=== PATIENT | female | born 1985 ===

== ENCOUNTER 2020-05-31 07:15 | Inpatient (IN) | payer OTHER ==
[2020-05-31 10:04] VITALS: BMI 34.2
[2020-05-31] MEDS ORDERED: DINOPROSTONE 10 MG VAGINAL SUPPOSITORY VG ONE (10:12)
[2020-05-31] MEDS: ELECTROLYTE-148 SOLN 1,000 ML IV SCH ×2 (10:35→17:35)
[2020-05-31 11:20] LABS: BASO % 1.1 % (0-2.0); EOS % 6.6 % (0-4.5); HEMOGLOBIN 10.9 GM/dL (10.7-15.3); LYMPH % 18.4 % (8-40); MCH 27.2 pg (25.7-33.7); MCHC 33.1 g/dl (32.0-36.0); MEAN CELL VOLUME 82.2 fl (80-96); MEAN PLT VOLUME 9.7 fl (7.5-11.1); MONO % 6.4 % (3.8-10.2); NEUT % 67.5 % (42.8-82.8); PLATELET COUNT 188 K/MM3 (134-434); RBC 4.02 M/mm3 (3.60-5.2); RDW 14.3 % (11.6-15.6); WHITE BLOOD COUNT 9.6 K/mm3 (4.0-10.0)
[2020-05-31 11:51] LABS: BLOOD UREA NITROGEN 10.4 mg/dL (7-18); CALCIUM 8.6 mg/dL (8.5-10.1); CREATININE 0.4 mg/dL (0.55-1.3)
[2020-05-31 11:57] LABS: INR 0.93 (0.83-1.09)
[2020-05-31 12:00] LABS: ACTIVATED PTT 32.4 SECONDS (25.2-36.5)
--- NOTE | 2020-05-31 14:00 | HP ---
Past Medical History - Primary Care Physician PCP:: Stephanie Saenz - Admission Chief Complaint: Induction of labor for grade 3 placenta History of Present Illness: 34 yo LMP 09/25/2019 EDC 06/04/2020 EGA 39.3 weeks scheduled for Induct ion of labor due to aging placenta H/O LGA x 3 G 5 present : suspected Hydrocephaly, venticulomegaly - ruled out by Neurosonography done by Dr Bassett History Source: Patient Limitations to Obtaining History: No Limitations, Language Barrier - Past Medical History ...: 5 ...Para: 3 ...Term: 3 ...: 0 ...Spon : 1 ...Induced : 0 ...Living Children: 3 ...Multiple Gestation: 0 ...LMP: 09/25/19 ... Weeks Gestation by Dates: 39.4 ...EDC by Dates: 07/01/20 ...EDC by Sono: 06/04/20 - Past Surgical History Past Surgical History: Yes: None Hx Myomectomy: No Hx Transabdominal Cerclage: No - Smoking History Smoking history: Never smoked Have you smoked in the past 12 months: No - Alcohol/Substance Use Hx Alcohol Use: No History of Substance Use: reports: None - Social History Usual Living Arrangement: Yes: With Spouse ADL: Independent History of Recent Travel: No Home Medications - Allergies Allergies/Adverse Reactions: Allergies Allergy/AdvReac Type Severity Reaction Status Date / Time No Known Allergies Allergy Verified 05/31/20 09:26 - Home Medications Home Medications: Ambulatory Orders Pnv No.95/Ferrous Fum/Folic AC [ Vitamin Tablet] 1 each PO DAILY 05/31/20 Family Medical History Family History: Unremarkable Review of Systems - Review of Systems Constitutional: reports: No Symptoms Eyes: reports: No Symptoms HENT: reports: No Symptoms Neck: reports: No Symptoms Cardiovascular: reports: No Symptoms Respiratory: reports: No Symptoms Gastrointestinal: reports: No Symptoms Genitourinary: reports: No Symptoms, Pain Breasts: reports: No Symptoms Reported Musculoskeletal: reports: No Symptoms Integumentary: reports: No Symptoms Neurological: reports: No Symptoms Endocrine: reports: No Symptoms Hematology/Lymphatic: reports: No Symptoms Psychiatric: reports: No Symptoms Physical Exam - Maternity Vital Signs: Vital Signs Temperature 98.3 F 05/31/20 12:00 Pulse Rate 78 05/31/20 12:00 Respiratory Rate 20 05/31/20 12:00 Blood Pressure 114/68 05/31/20 12:00 O2 Sat by Pulse Oximetry (%) Constitutional: Yes: Well Nourished, No Distress Eyes: Yes: WNL HENT: Yes: WNL Neck: Yes: WNL Cardiovascular: Yes: WNL Lungs: Clear to auscultation - Abdominal Exam/OB Fundal Height: 40 Number of Fetuses: Single Presentation: Vertex Contractions: Yes Regularity: Irritability Intensity: Unaware Monitor Mode: External Heart Rate (range): 140 Heart Rate Location: [facility] Category: I Accelerations: Uniform Decelerations: None - Vaginal Exam/OB Vaginal Bleeding: No Dilatation (cm): 1 Effacement (%): 30 Amniotic Fluid: No: Clear Presentation: Vertex/Position Station: -2 - Physical Exam Musculoskeletal: Yes: WNL Extremities: Yes: WNL Edema: No Integumentary: Yes: WNL ...Motor Strength: WNL Psychiatric: Yes: WNL - Labs Lab Results: CBC, BMP 05/31/20 11:00 05/31/20 11:00 Hemorrhage Risk Assessment - Risk Factors Medium Risk Factors: Yes: Multiple gestation Risk Score: 1 Risk Level: Medium Risk Problem List - Problems (1) 39 weeks gestation of Code(s): Z3A.39 - 39 WEEKS GESTATION OF (2) Multiparity Code(s): Z64.1 - PROBLEMS RELATED TO MULTIPARITY (3) Placenta disorder Code(s): O43.90 - UNSPECIFIED PLACENTAL DISORDER, UNSPECIFIED TRIMESTER Assessment/Plan Admit to LD Induction of labor
--- NOTE | 2020-05-31 18:32 | PN ---
Progress Note (short form) - Note Progress Note: Pt c/o painful UC VSS, afebrile VE - 3-4 cm, cervidil removed AROM - clear fluid IFM apply 5:00pm Baseline 140 bpm reactive cat 1 no decel TOCO reg UC q 2 min A/P close observation Problem List - Problems (1) 39 weeks gestation of Code(s): Z3A.39 - 39 WEEKS GESTATION OF (2) Multiparity Code(s): Z64.1 - PROBLEMS RELATED TO MULTIPARITY (3) Placenta disorder Code(s): O43.90 - UNSPECIFIED PLACENTAL DISORDER, UNSPECIFIED TRIMESTER
[2020-05-31] MEDS ORDERED: OXYTOCIN 20 UNITS in 0.9% NS 20 UNIT/1,000 ML INFUS.BAG IV ONE (19:38)
[2020-05-31] MEDS ORDERED: LIDOCAINE HCL 1% PRESERVATIVE FREE - 30ML VIAL ONE (19:38)
[2020-05-31] MEDS ORDERED: OXYTOCIN 30 UNITS in 0.9% NS 30 UNIT/500 ML INFUS.BAG IVPB ONE (19:38)
[2020-05-31] MEDS: OXYTOCIN 30 UNITS in 0.9% NS 30 UNIT/500 ML INFUS.BAG IVPB SCH (19:43)
[2020-05-31] MEDS ORDERED: BUTORPHANOL TARTRATE 2 MG/ML VIAL ONE (20:33)
[2020-05-31] MEDS ORDERED: PROMETHAZINE HCL 25 MG/1 ML VIAL ONE (20:34)
[2020-05-31] MEDS ORDERED: BUTORPHANOL TARTRATE 1 MG/ML VIAL IVPB ONE (20:38)
--- NOTE | 2020-05-31 20:38 | PN ---
Progress Note (short form) - Note Progress Note: Pt c/o painful UC and requesting pain meds VSS, afebrile VE - 3-4 cm, vtx -2 , leaking clear fluid Baseline 140 bpm reactive cat 1 no decel TOCO reg UC q 4-5 min A/P close observation Pitocin augmentation Pain meds, declined epidural Rodrigues to gravity Problem List - Problems (1) 39 weeks gestation of Code(s): Z3A.39 - 39 WEEKS GESTATION OF (2) Multiparity Code(s): Z64.1 - PROBLEMS RELATED TO MULTIPARITY (3) Placenta disorder Code(s): O43.90 - UNSPECIFIED PLACENTAL DISORDER, UNSPECIFIED TRIMESTER
[2020-05-31] MEDS ORDERED: PROMETHAZINE HCL 25 MG/1 ML VIAL IVPB ONE (20:39)
--- NOTE | 2020-05-31 22:10 | PN ---
Progress Note (short form) - Note Progress Note: Pt c/o painful UC VSS, afebrile VE -5 cm, vtx -2 , leaking clear fluid Baseline 140 bpm reactive cat 1 no decel TOCO reg UC q 4-5 min A/P close observation Pitocin augmentation Pain meds, declined epidural Rodrigues to gravity Problem List - Problems (1) 39 weeks gestation of Code(s): Z3A.39 - 39 WEEKS GESTATION OF (2) Multiparity Code(s): Z64.1 - PROBLEMS RELATED TO MULTIPARITY (3) Placenta disorder Code(s): O43.90 - UNSPECIFIED PLACENTAL DISORDER, UNSPECIFIED TRIMESTER
[2020-05-31] MEDS ORDERED: METHYLERGONOVINE MALEATE 0.2 MG/1 ML AMP IM PRN (23:51)
[2020-05-31] MEDS ORDERED: WITCH HAZEL 50% (TUCKS) 40 PAD/JAR PAD TP PRN (23:51)
[2020-05-31] MEDS ORDERED: BENZOCAINE 20% 57 GM BOTTLE TP PRN (23:51)
[2020-05-31] MEDS ORDERED: BISACODYL 10 MG SUPP.RECT RC PRN (23:51)
[2020-05-31] MEDS ORDERED: BENZOCAINE 28 GM HEMORRHOIDAL OINTMENT TP PRN (23:51)
--- NOTE | 2020-05-31 23:51 | PN ---
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
[2020-06-01] MEDS: OXYTOCIN 20 UNITS in 0.9% NS 20 UNIT/1,000 ML INFUS.BAG IV SCH (00:30)
[2020-06-01 01:42] LABS: CORD BASE EXCESS -5.4 mmol/L (0-2); CORD HCO3 23.1 mmHg (20-29); CORD PCO2 56.5 mmHg (30-78); CORD pH 7.229 (7.14-7.44)
[2020-06-01 01:45] LABS: CORD BASE EXCESS -5.8 mmol/L (0-2); CORD HCO3 20.8 mmHg (20-29); CORD PCO2 44.4 mmHg (30-78); CORD pH 7.288 (7.14-7.44)
[2020-06-01] MEDS: ACETAMINOPHEN 325 MG TABLET (FP) PO PRN ×3 (04:19→21:45)
[2020-06-01] MEDS: IBUPROFEN 600 MG TABLET (FP) PO PRN ×3 (04:39→21:45)
[2020-06-01 10:53] LABS: BASO % 0.5 % (0-2.0); EOS % 0.9 % (0-4.5); HEMATOCRIT 30.8 % (32.4-45.2); HEMOGLOBIN 10.4 GM/dL (10.7-15.3); LYMPH % 9.4 % (8-40); MCH 27.8 pg (25.7-33.7); MCHC 33.6 g/dl (32.0-36.0); MEAN CELL VOLUME 82.5 fl (80-96); MEAN PLT VOLUME 10.3 fl (7.5-11.1); MONO % 5.9 % (3.8-10.2); NEUT % 83.3 % (42.8-82.8); PLATELET COUNT 186 K/MM3 (134-434); RBC 3.74 M/mm3 (3.60-5.2); RDW 14.2 % (11.6-15.6); WHITE BLOOD COUNT 14.9 K/mm3 (4.0-10.0)
--- NOTE | 2020-06-01 17:53 | PN ---
Post Progress Note - Subjective Subjective: Denies any complaints Voiding Tolerating diet Post Day: 1 Type of Delivery: Vital Signs: Vital Signs Temperature 98.2 F 06/01/20 14:00 Pulse Rate 73 06/01/20 14:00 Respiratory Rate 20 06/01/20 14:00 Blood Pressure 90/52 L 06/01/20 14:00 O2 Sat by Pulse Oximetry (%) 98 06/01/20 00:45 Breast Exam: Yes: Soft Uterus: Yes: Fundus Firm Lochia: Yes: Rubra Lochia, amount: Small Extremities: Yes: Calves non-tender Activity: Ambulating - Labs Labs: CBC WBC 14.9 K/mm3 (4.0-10.0) H 06/01/20 10:20 RBC 3.74 M/mm3 (3.60-5.2) 06/01/20 10:20 Hgb 10.4 GM/dL (10.7-15.3) L 06/01/20 10:20 Hct 30.8 % (32.4-45.2) L 06/01/20 10:20 MCV 82.5 fl (80-96) 06/01/20 10:20 MCH 27.8 pg (25.7-33.7) 06/01/20 10:20 MCHC 33.6 g/dl (32.0-36.0) 06/01/20 10:20 RDW 14.2 % (11.6-15.6) 06/01/20 10:20 Plt Count 186 K/MM3 (134-434) 06/01/20 10:20 MPV 10.3 fl (7.5-11.1) 06/01/20 10:20 Absolute Neuts (auto) 12.4 K/mm3 (1.5-8.0) H 06/01/20 10:20 Neutrophils % 83.3 % (42.8-82.8) H D 06/01/20 10:20 Lymphocytes % 9.4 % (8-40) D 06/01/20 10:20 Monocytes % 5.9 % (3.8-10.2) 06/01/20 10:20 Eosinophils % 0.9 % (0-4.5) D 06/01/20 10:20 Basophils % 0.5 % (0-2.0) 06/01/20 10:20 Nucleated RBC % 0 % (0-0) 06/01/20 10:20 Assessment/Plan Regular diet Ambulation Discharge tomorrow
[2020-06-01] MEDS: ELECTROLYTE-148 SOLN 1,000 ML IV SCH (20:38)
[2020-06-01] MEDS: OXYTOCIN 30 UNITS in 0.9% NS 30 UNIT/500 ML INFUS.BAG IVPB SCH (20:39)
[2020-06-02] MEDS: OXYTOCIN 20 UNITS in 0.9% NS 20 UNIT/1,000 ML INFUS.BAG IV SCH (00:32)
[2020-06-02] MEDS: IBUPROFEN 600 MG TABLET (FP) PO PRN (08:12)
[2020-06-02] MEDS: ACETAMINOPHEN 325 MG TABLET (FP) PO PRN (08:13)
--- NOTE | 2020-06-02 10:12 | DS ---
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 Vital Signs: Vital Signs Temperature 97.8 F 06/01/20 22:00 Pulse Rate 80 06/01/20 22:00 Respiratory Rate 18 06/01/20 22:00 Blood Pressure 105/67 06/01/20 22:00 O2 Sat by Pulse Oximetry (%) 98 06/01/20 00:45 Constitutional: Yes: Well Nourished, No Distress, Calm Eyes: Yes: WNL, Conjunctiva Clear, EOM Intact HENT: Yes: WNL, Atraumatic, Normocephalic Neck: Yes: WNL, Supple, Trachea Midline Cardiovascular: Yes: WNL, Regular Rate and Rhythm Respiratory: Yes: WNL, Regular, CTA Bilaterally Gastrointestinal: Yes: WNL ...Rectal Exam: Yes: WNL Renal/: Yes: WNL Breast(s): Yes: WNL Musculoskeletal: Yes: WNL Extremities: Yes: WNL Integumentary: Yes: WNL Neurological: Yes: WNL, Alert, Oriented ...Motor Strength: WNL Psychiatric: Yes: WNL, Alert, Oriented Labs: CBC, BMP 06/01/20 10:20 05/31/20 11:00 Delivery - Delivery Vaginal Delivery: Spontaneous Type of Anesthesia: None Episiotomy/Laceration: None EBL (cc): 350 Delivery, Single - Stages of Labor Date 1st Stage Initiatied: 05/31/20 Time 1st Stage Initiated: 09:00 Date 2nd Stage Initiated: 05/31/20 Time 2nd Stage Initiated: 23:30 Date of Delivery: 05/31/20 Time of Delivery: 23:40 Time Placenta Delivered: 23:45 Placenta: Yes: Spontaneous - 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 of Infant 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[employer] 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 Present: No Infant Gender: Male Weight: 3.742 kg Position: Right, OA Total Hours ROM (Hrs/Mins): 6 hours - 1 Minute Total Score: 7 5 Minutes Total Score: 9 - [place] Feeding Plan Initial Plan: Elected not to breastfeed exclusively throughout hospitalization Discharge Summary Problems reviewed: Yes Reason For Visit: CERVICAL INDUCTION Current Active Problems 39 weeks gestation of (Acute) Multiparity (Acute) Placenta disorder (Acute) Condition: Good - Instructions Disposition: HOME - Home Medications Comprehensive Discharge Medication List: Ambulatory Orders Pnv No.95/Ferrous Fum/Folic AC [ Vitamin Tablet] 1 each PO DAILY 05/31/20
[2020-06-02 11:12] VITALS: BP 101/60; PULSE 71; TEMP 98.5
== END 2020-06-02 12:30 | disposition home or self-care (01) | DRG 560 ==
LOC: JLDR 07:15 → J3W 06-01 01:10
PROVIDERS: ADMIT Obstetrics & Gynecology; ATTEND Obstetrics & Gynecology
PROC: 10E0XZZ Delivery of Products of Conception, External Approach (ICD-10-PCS; principal; 2020-05-31)
DX: O43.893 Other placental disorders, third trimester (principal); O69.81X0 Labor and delivery complicated by cord around neck, without compression, not applicable or unspecified; Z3A.39 39 weeks gestation of pregnancy; Z37.0 Single live birth
CPT/HCPCS: 36415; 36600; 59409; 80048; 82803; 85025; 85610; 85730; 86780; 86850; 86900; 86901; 87389; U0003